=== PATIENT | female | born 2000 | race Two or more races ===

== ENCOUNTER 2024-06-14 21:42 | Emergency (ER) | payer MEDICAID, OTHER ==
[~2024-06-14] VITALS: Ht 162.6 cm; Wt 55.3 kg
[2024-06-14 21:49] VITALS: BP 126/77; PULSE 70; RESP 18; O2SAT 99
--- NOTE | 2024-06-14 22:05 | ED.PDOC ---
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 Patient went to the urgent care today, was prescribed Bactrim took her first dose today but states symptoms continue. Patient had an STD panel tested and is awaiting results. Patient complains of discharge that has increased but denies any bleeding, clotting, pain. Patient denies any medical history. Chief Complaint: Abrasion Time Seen by MD: 21:55 Reviewed Notes: Nurses Notes, Medications, Allergies Allergies: Coded Allergies: Penicillins (Verified Allergy, Unknown, 06/14/24) Home Meds Active Scripts Doxycycline Hyclate (DOXYCYCLINE HYCLATE) 100 Mg Tab, 1 TAB PO BID, #14 TAB Prov:NATHEN LOMELI MD 06/14/24 Information Source: Patient Mode of Arrival: Ambulatory Timing: Hours Severity: Moderate Vaginal Discharge: [place] Of Mass/Bleeding: Spontaneous Sexual Activity: Neither Last Consensual [place]: Unknown Control: None Associated Signs and Symptoms: Vaginal Discharge Past Medical History PAST MEDICAL HISTORY: Denies Surgical History: Denies all surgeries CHIEF HOSPITAL ADMINISTRATOR History: No Pertinent CHIEF HOSPITAL ADMINISTRATOR History Family History Family History: Reviewed,noncontributory to illness Social History Smoker: Non-Smoker Alcohol: Denies ETOH Use Drugs: Denies Drug Use Lives In: Home Constitutional: denies: chills, diaphoresis, fatigue, fever, malaise, sweats, weakness, others EENTM: denies: blurred vision, double vision, ear bleeding, ear discharge, ear drainage, ear pain, ear ringing, eye pain, eye redness, hearing loss, mouth pain, mouth swelling, nasal discharge, nose bleeding, nose congestion, nose pain, photophobia, tearing, throat pain, throat swelling, voice changes, others Respiratory: denies: cough, hemoptysis, orthopnea, SOB at rest, shortness of breath, SOB with excertion, stridor, wheezing, others Cardiovascular: denies: chest pain, dizzy spells, diaphoresis, Dyspnea on exertion, edema, irregular heart beat, left arm pain, lightheadedness, palpitations, PND, syncope, others Gastrointestinal: denies: abdomen distended, abdominal pain, blood streaked bowels, constipated, diarrhea, dysphagia, difficulty swallowing, hematemesis, melena, nausea, poor appetite, poor fluid intake, rectal bleeding, rectal pain, vomiting, others Genitourinary: reports: vagina discharge; denies: abnormal vagina bleeding, bur luisa, dyspareunia, dysuria, flank pain, frequency, hematuria, incontinence, pain, , urgency, others Neurological: denies: dizziness, fainting, headache, left sided numbness, left sided weakness, numbness, paresthesia, pre-existing deficit, right sided numbness, right sided weakness, seizure, speech problems, tingling, tremors, weakness, others Musculoskeletal: denies: back pain, gout, joint pain, joint swelling, muscle pain, muscle stiffness, neck pain, others Integumetry: reports: others (abrasion to the right inner labia ); denies: bruises, change in color, change in hair/nails, dryness, laceration, lesions, lumps, rash, wounds Allergic/Immunocompromised: denies: Difficulty Healing, Frequent Infections, Hives, Itching, others Hematologic/Lymphatic: denies: anemia, blood clots, easy bleeding, easy bruising, swollen glands, others Endocrine: denies: excessive hunger, excessive sweating, excessive thirst, excessive urination, flushing, intolerance to cold, intolerance to heat, unexplained weight gain, unexplained weight loss, others Psychiatric: denies: anxiety, bipolar disorder, depression, hopeless, panic disorder, schizophrenia, sleepless, suicidal, others All Other Systems: Reviewed and Negative Physical Exam General Appearance: No Apparent Distress, Normal HEENT: Normal ENT Inspection, Pharynx Normal, TMs Normal Neck: Full Range of Motion, Non-Tender, Normal, Normal Inspection Respiratory: Chest Non-Tender, Lungs Clear, No Accessory Muscle Use, No Respiratory Distress, Normal Breath Sounds Cardiovascular: No Edema, No JVD, No Murmur, No Gallop, Normal Peripheral Pulses, Regular Rate/Rhythm Breast Exam: Deferred Gastrointestinal: No Organomegaly, Non Tender, No Pulsatile Mass, Normal Bowel Sounds, Soft Genitalia: Deferred Pelvic: No cerv. Motion Tender, No Masses, Other (pubis recently shave, right introitus mildly inflammed. No cysts, nodules) Rectal: Deferred Extremities: No calf tenderness, Normal capillary refill, Normal inspection, Normal range of motion, Non-tender, No pedal edema Musculoskeletal : Apperance: Normal Neurologic: Alert, leaf binner II-XII nml as Tested, No Motor Deficits, Normal Affect, Normal Mood, No Sensory Deficits Cerebellar Function: Normal Reflexes: Normal Skin: Dry, Normal Color, Warm Lymphatic: No Adenopathy Was a procedure done? Was a procedure done?: No Differential Diagnosis (CHIEF HOSPITAL ADMINISTRATOR) Vaginal Discharge: Physiologic Discharge, PID, , UTI, Vaginitis - Atrophic, Vaginitis - Bacterial, Vaginitis - Candidal, Vaginitis - Contact, Vaginitis - Herpes, Vaginitis - Trichomonas X-Ray, Labs, Meds, VS Vital Signs Date Time Temp Pulse Resp B/P (MAP) Pulse Ox O2 Delivery O2 Flow Rate FiO2 06/14/24 21:49 98.1 70 18 126/77 (93) 99 Time of 1ST Reevaluation: 21:59 Reevaluation 1ST: Unchanged Patient Education/Counseling: Diagnosis, Treatment, Prognosis, Need For Follow Up Family Education/Counseling: No Family Present Additional Information - I reviewed the following notes from patient's past medical encounters: None - The following tests were ordered, and results were reviewed by me: None - Additional information was gathered from interviewing the following claudia dent Historian:None - I reviewed and agreed with the following test results read by other provider: None - I discussed treatments and results with medical personnel pt was started on bactrim and took one dose this evening. she has STI test panels with results pending. she reports more than the usual vaginal discharge, but on exam, i did not see any discharge or odor. her right introitus is mildly inflamed, but there are no swelling to indicate Bartholin's gland, abscss. however, based on the history, i will start her on doxy to cover for vaginitis. she will follow up with her doctor regarding the final STI results Departure 1 Departure Time of Disposition: 22:34 Impression: Primary Impression: Vaginitis Qualified Codes: N76.0 - Acute vaginitis Disposition: HOME / SELF CARE / HOMELESS Condition: Good e-Prescriptions Doxycycline Hyclate (DOXYCYCLINE HYCLATE) 100 Mg Tab 1 TAB PO BID, #14 TAB Prov: NATHEN LOMELI MD 06/14/24 Discharged With: Self Critical Care Note Critical Care Time?: No Stability Stability form required: No I personally scribed for LIZETTE NEFF MD ([facility] on 06/14/24 at 22:05. Electronically submitted by Lynne HernandezUN[facility]). I personally scribed for LIZETTE NEFF MD ([email or web address]) on 06/14/24 at 22:47. Electronically submitted by Corona Santo ([facility]). LIZETTE NEFF MD Jun 14, 2024 22:05 NATHEN LOMELI MD Jun 14, 2024 22:38
[2024-06-14] MEDS ORDERED: DOXY-286 PO (22:35)
--- NOTE | 2024-06-14 22:44 | ED.PDOC ---
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 Patient went to the urgent care today, was prescribed Bactrim took her first dose today but states symptoms continue. Patient had an STD panel tested and is awaiting results. Patient complains of discharge that has increased but denies any bleeding, clotting, pain. Patient denies any medical history. Chief Complaint: Abrasion Time Seen by MD: 22:42 Reviewed Notes: Nurses Notes Allergies: Coded Allergies: Penicillins (Verified Allergy, Unknown, 06/14/24) Home Meds Active Scripts Doxycycline Hyclate (DOXYCYCLINE HYCLATE) 100 Mg Tab, 1 TAB PO BID, #14 TAB Prov:NATHEN LOMELI MD 06/14/24 Information Source: Patient Mode of Arrival: Ambulatory Timing: Days Prehospital treatment: None Severity: Moderate Vaginal Discharge: None Vaginal Lesions: None Vaginal Mass: None Sexual Activity: Sexually Active Last Consensual [place]: Unknown Control: None Past Medical History PAST MEDICAL HISTORY: Denies Surgical History: Denies all surgeries LEASE OPERATOR History: No Pertinent LEASE OPERATOR History Family History Family History: Reviewed,noncontributory to illness Social History Smoker: Non-Smoker Alcohol: Denies ETOH Use Drugs: Denies Drug Use Lives In: Home Constitutional: denies: chills, diaphoresis, fatigue, fever, malaise, sweats, weakness, others EENTM: denies: blurred vision, double vision, ear bleeding, ear discharge, ear drainage, ear pain, ear ringing, eye pain, eye redness, hearing loss, mouth pain, mouth swelling, nasal discharge, nose bleeding, nose congestion, nose pain, photophobia, tearing, throat pain, throat swelling, voice changes, others Respiratory: denies: cough, hemoptysis, orthopnea, SOB at rest, shortness of breath, SOB with excertion, stridor, wheezing, others Cardiovascular: denies: chest pain, dizzy spells, diaphoresis, Dyspnea on e xertion, edema, irregular heart beat, left arm pain, lightheadedness, palpitations, PND, syncope, others Gastrointestinal: denies: abdomen distended, abdominal pain, blood streaked bowels, constipated, diarrhea, dysphagia, difficulty swallowing, hematemesis, melena, nausea, poor appetite, poor fluid intake, rectal bleeding, rectal pain, vomiting, others Genitourinary: reports: vagina discharge; denies: abnormal vagina bleeding, burning, dyspareunia, dysuria, flank pain, frequency, hematuria, incontinence, pain, , urgency, others Neurological: denies: dizziness, fainting, headache, left sided numbness, left sided weakness, numbness, paresthesia, pre-existing deficit, right sided numbness, right sided weakness, seizure, speech problems, tingling, tremors, weakness, others Musculoskeletal: denies: back pain, gout, joint pain, joint swelling, muscle pain, muscle stiffness, neck pain, others Integumetry: reports: others (abrasion right inner labia); denies: bruises, change in color, change in hair/nails, dryness, laceration, lesions, lumps, rash, wounds Allergic/Immunocompromised: denies: Difficulty Healing, Frequent Infections, Hives, Itching, others Hematologic/Lymphatic: denies: anemia, blood clots, easy bleeding, easy bruising, swollen glands, others Endocrine: denies: excessive hunger, excessive sweating, excessive thirst, excessive urination, flushing, intolerance to cold, intolerance to heat, unexplained weight gain, unexplained weight loss, others Psychiatric: denies: anxiety, bipolar disorder, depression, hopeless, panic disorder, schizophrenia, sleepless, suicidal, others Physical Exam General Appearance: No Apparent Distress, Normal HEENT: Normal ENT Inspection, Pharynx Normal, TMs Normal Neck: Full Range of Motion, Non-Tender, Normal, Normal Inspection Respiratory: Chest Non-Tender, Lungs Clear, No Accessory Muscle Use, No Respiratory Distress, Normal Breath Sounds Cardiovascular: No Edema, No JVD, No Murmur, No Gallop, Normal Peripheral Pulses, Regular Rate/Rhythm Breast Exam: Deferred Gastrointestinal: No Organomegaly, Non Tender, No Pulsatile Mass, Normal Bowel Sounds, Soft Genitalia: Deferred Pelvic: Deferred, Other (pubis recently shave, right introitus mildly inflammed. No cysts, nodules)) Rectal: Deferred Extremities: No calf tenderness, Normal capillary refill, Normal inspection, Normal range of motion, Non-tender, No pedal edema Musculoskeletal : Apperance: Normal Neurologic: Alert, tire fabric impregnating range tender II-XII nml as Tested, No Motor Deficits, Normal Affect, Normal Mood, No Sensory Deficits Cerebellar Function: Normal Reflexes: Normal Skin: Dry, Normal Color, Warm Lymphatic: No Adenopathy Was a procedure done? Was a procedure done?: No Differential Diagnosis (LEASE OPERATOR) Mass / Lesion: Perianal Abscess, Subcutaneous Abscess, Vaginitis - Bacterial, Vaginitis - Candidal, Vaginitis - Herpetic, Vaginitis - Trichomonas Vaginal Discharge: UTI, Vaginitis - Atrophic, Vaginitis - Bacterial X-Ray, Labs, Meds, VS Vital Signs Date Time Temp Pulse Resp B/P (MAP) Pulse Ox O2 Delivery O2 Flow Rate FiO2 06/14/24 21:49 98.1 70 18 126/77 (93) 99 Time of 1ST Reevaluation: 22:34 Reevaluation 1ST: Unchanged Patient Education/Counseling: Diagnosis, Treatment Family Education/Counseling: No Family Present Additional Information based on pt's history, she may ave vaginitis. i did not appreciate any discharge or odors. she did not have an abscess, cysts, or any area of pain or swelling. the right introitus has mild inflammation. i will cover her for vaginitis with doxy. her STI panel is pending result by , which she will follow up with Departure 1 Departure Time of Disposition: 22:34 Impression: Primary Impression: Vaginitis Qualified Codes: N76.0 - Acute vaginitis Disposition: HOME / SELF CARE / HOMELESS Condition: Good e-Prescriptions Doxycycline Hyclate (DOXYCYCLINE HYCLATE) 100 Mg Tab 1 TAB PO BID, #14 TAB Prov: NATHEN LOMELI MD 06/14/24 Discharged With: Self Critical Care Note Critical Care Time?: No Stability Stability form required: No Heart Score Heart Score: Heart Score Response (Comments) Value History N/A 0 EKG N/A 0 Age N/A 0 Risk Factors N/A 0 Troponin N/A 0 Total 0 I personally scribed for NATHEN LOMELI MD ([email or web address]) on 06/14/24 at 22:44. Electronically submitted by Corona Santo ([email or web address]). I personally scribed for NATHEN LOMELI MD ([email or web address]) on 06/14/24 at 22:46. Electronically submitted by Corona Santo ([email or web address]). NATHEN LOMELI MD Jun 14, 2024 22:44
== END 2024-06-15 03:52 | disposition home or self-care (01) ==
LOC: ER 21:42
DX: S30.814A Abrasion of vagina and vulva, initial encounter (principal); N76.0 Acute vaginitis; Z88.0 Allergy status to penicillin; X58.XXXA Exposure to other specified factors, initial encounter; Y93.89 Activity, other specified; Y92.89 Other specified places as the place of occurrence of the external cause; Y99.8 Other external cause status

== ENCOUNTER 2024-06-20 20:18 | Emergency (ER) | payer MEDICAID ==
[~2024-06-20] VITALS: Ht 162.6 cm; Wt 52.0 kg
[~2024-06-20 20:18] MED LIST: DOXY-286 PO
--- NOTE | 2024-06-20 22:13 | ED.PDOC ---
History of Present Illness HPI Comments 24 y/o F presents with cysts to her pubic area. She reports on returning to the ED after previous visit for it 1x week ago, due to still endorsing on cysts bringing her discomfort, after leaving the ED prior to receiving treatment then. Patient denies any discharge, swelling, bleeding, or other associated symptoms at this time. Chief Complaint: Wound Check Time Seen by MD: 22:00 Reviewed Notes: Nurses Notes, Medications, Allergies Allergies: Coded Allergies: Penicillins (Verified Allergy, Unknown, 06/14/24) Home Meds Active Scripts Doxycycline Hyclate (DOXYCYCLINE HYCLATE) 100 Mg Tab, 1 TAB PO BID, #14 TAB Prov:NATHEN LOMELI MD 06/14/24 Information Source: Patient Mode of Arrival: Ambulatory Past Medical History PAST MEDICAL HISTORY: Denies Surgical History: Denies all surgeries CALIBRATION CHECKER History: No Pertinent CALIBRATION CHECKER History Family History Family History: Reviewed,noncontributory to illness Social History Smoker: Non-Smoker Alcohol: Denies ETOH Use Drugs: Denies Drug Use Lives In: Home All Other Systems: Reviewed and Negative (comprehensive overview of systems negative unless otherwise stated in HPI) Physical Exam General Appearance: No Apparent Distress, Normal HEENT: Normal ENT Inspection, Pharynx Normal, TMs Normal Neck: Full Range of Motion, Non-Tender, Normal, Normal Inspection Respiratory: Chest Non-Tender, Lungs Clear, No Accessory Muscle Use, No Respiratory Distress, Normal Breath Sounds Cardiovascular: No Edema, No JVD, No Murmur, No Gallop, Normal Peripheral Pulses, Regular Rate/Rhythm Breast Exam: Deferred Gastrointestinal: No Organomegaly, Non Tender, No Pulsatile Mass, Normal Bowel Sounds, Soft Genitalia: Other (right labia majora, small area of abrasion with some mild redness; no discharge, lesions, swelling, no abscess, no cysts. pt is shaven) Pelvic: Deferred Rectal: Deferred Extremities: No calf tenderness, Normal capillary refill, Normal inspection, Normal range of motion, Non-tender, No pedal edema Musculoskeletal : Apperance: Normal Neurologic: Alert, photographer news II-XII nml as Tested, No Motor Deficits, Normal Affect, Normal Mood, No Sensory Deficits Cerebellar Function: Normal Reflexes: Normal Skin: Dry, Normal Color, Warm Lymphatic: No Adenopathy Was a procedure done? Was a procedure done?: No Differential Dx Considerations may include: vulvitis, dermatitis, cellulitis, viral X-Ray, Labs, Meds, VS Vital Signs Date Time Temp Pulse Resp B/P (MAP) Pulse Ox O2 Delivery O2 Flow Rate FiO2 06/20/24 21:57 97.9 69 16 104/67 (79) 96 Time of 1ST Reevaluation: 22:30 Reevaluation 1ST: Unchanged Patient Education/Counseling: Diagnosis, Treatment, Prognosis, Need For Follow Up Family Education/Counseling: No Family Present Additional Information pt has burning of the pubic area due to the exposed abrasion. there is mild redness. no blistering, no other lesions, no discharge. pt will be started on keflex and mupirocin. she is stable for discharge Departure 1 Departure Time of Disposition: 22:16 Impression: Primary Impression: Abrasion Additional Impression: Cellulitis Qualified Codes: L03.90 - Cellulitis, unspecified Disposition: HOME / SELF CARE / HOMELESS Condition: Good e-Prescriptions Mupirocin Calcium (Topical) (MUPIROCIN) 2 % Cre 2 % EX BID, #1 CRE Prov: NATHEN LOMELI MD 06/20/24 Cephalexin Monohydrate (Cephalexin) 500 Mg Cap 1 CAP PO QID, #40 CAP Prov: NATHEN LOMELI MD 06/20/24 Discharged With: Self Critical Care Note Critical Care Time?: No Stability Stability form required: No Heart Score Heart Score: Heart Score Response (Comments) Value History N/A 0 EKG N/A 0 Age N/A 0 Risk Factors N/A 0 Troponin N/A 0 Total 0 I personally scribed for NATHEN LOMELI MD ([email or web address]) on 06/20/24 at 22:12. Electronically submitted by Mario Shepherd ([email or web address]). NATHEN LOMELI MD Jun 20, 2024 22:12
[2024-06-20] MEDS ORDERED: CEPH500C PO (22:18)
[2024-06-20] MEDS ORDERED: MUPI2CRE17 EX (22:18)
[2024-06-20] MEDS: CEPHALEXIN 250 MG CAP PO ONE (23:47)
[2024-06-20 23:53] VITALS: BP 101/67; PULSE 86; RESP 12; TEMP 98.3; O2SAT 91
== END 2024-06-20 23:58 | disposition home or self-care (01) ==
LOC: ER 20:18
DX: S30.814A Abrasion of vagina and vulva, initial encounter (principal); L03.312 Cellulitis of back [any part except buttock and flank]; Z88.0 Allergy status to penicillin; X58.XXXA Exposure to other specified factors, initial encounter; Y93.89 Activity, other specified; Y92.89 Other specified places as the place of occurrence of the external cause; Y99.8 Other external cause status

== ENCOUNTER 2025-02-18 09:33 | Emergency (ER) | payer MEDICAID, OTHER ==
[~2025-02-18] VITALS: Ht 162.6 cm; Wt 54.9 kg
[~2025-02-18 09:33] MED LIST changes: +CEPH500C PO; +MUPI2CRE17 EX
--- NOTE | 2025-02-18 10:19 | ED.PDOC ---
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 Patient reports that she is currently 11 weeks 6 days with her first when she had started to experience heavy vaginal bleeding with associated suprapubic abdominal cramping since this morning. Patient relays that she follows up with an OBGYN in [place] where she lives. Patient denies any N/V/D, dysuria, hematuria, chest pain, SOB, or dizziness. Chief Complaint: Vaginal Bleed Time Seen by MD: 10:19 Reviewed Notes: Nurses Notes, Medications, Allergies Allergies: Coded Allergies: Penicillins (Verified Allergy, Unknown, 06/14/24) Home Meds Active Scripts Cephalexin (KEFLEX CAPSULE) 250 Mg Cp, 500 MG PO QID for 7 Days, #28 CAP Prov:DOMINGUEZ CHERRY MD 02/18/25 Mupirocin Calcium (Topical) (MUPIROCIN) 2 % Cre, 2 % EX BID, #1 CRE Prov:NATHEN LOMELI MD 06/20/24 Cephalexin Monohydrate (Cephalexin) 500 Mg Cap, 1 CAP PO QID, #40 CAP Prov:NATHEN LOMELI MD 06/20/24 Doxycycline Hyclate (DOXYCYCLINE HYCLATE) 100 Mg Tab, 1 TAB PO BID, #14 TAB Prov:NATHEN LOMELI MD 06/14/24 Information Source: Patient Mode of Arrival: Ambulatory Timing: Days Prehospital treatment: None Severity: Moderate Bleeding Quality: Bright Red Onset Of Mass/Bleeding: Spontaneous Sexual Activity: Last Consensual [place]: Unknown History of: Current Associated Signs and Symptoms: Vaginal Bleeding, Abdominal Pain Past Medical History PAST MEDICAL HISTORY: Denies Surgical History: Denies all surgeries CLINICAL SPECIALIST History: No Pertinent CLINICAL SPECIALIST History Family History Family History: Reviewed,noncontributory to illness Social History Smoker: Non-Smoker Alcohol: Denies ETOH Use Drugs: Denies Drug Use Lives In: Home Constitutional: denies: chills, diaphoresis, fatigue, fever, malaise, sweats, weakness, others EENTM: denies: blurred vision, double vision, ear bleeding, ear discharge, ear drainage, ear pain, ear ringing, eye pain, eye redness, hearing loss, mouth pain, mouth swelling, nasal discharge, nose bleeding, nose congestion, nose pain, photophobia, tearing, throat pain, throat swelling, voice changes, others Respiratory: denies: cough, hemoptysis, orthopnea, SOB at rest, shortness of breath, SOB with excertion, stridor, wheezing, others Cardiovascular: denies: chest pain, dizzy spells, diaphoresis, Dyspnea on exertion, edema, irregular heart beat, left arm pain, lightheadedness, palp itations, PND, syncope, others Gastrointestinal: reports: abdominal pain; denies: abdomen distended, blood streaked bowels, constipated, diarrhea, dysphagia, difficulty swallowing, hematemesis, melena, nausea, poor appetite, poor fluid intake, rectal bleeding, rectal pain, vomiting, others Genitourinary: reports: abnormal vagina bleeding; denies: burning, dyspareunia, dysuria, flank pain, frequency, hematuria, incontinence, pain, , vagina discharge, urgency, others Neurological: denies: dizziness, fainting, headache, left sided numbness, left sided weakness, numbness, paresthesia, pre-existing deficit, right sided numbness, right sided weakness, seizure, speech problems, tingling, tremors, weakness, others Musculoskeletal: denies: back pain, gout, joint pain, joint swelling, muscle pain, muscle stiffness, neck pain, others Integumetry: denies: bruises, change in color, change in hair/nails, dryness, laceration, lesions, lumps, rash, wounds, others Allergic/Immunocompromised: denies: Difficulty Healing, Frequent Infections, Hives, Itching, others Hematologic/Lymphatic: denies: anemia, blood clots, easy bleeding, easy bruising, swollen glands, others Endocrine: denies: excessive hunger, excessive sweating, excessive thirst, excessive urination, flushing, intolerance to cold, intolerance to heat, unexplained weight gain, unexplained weight loss, others Psychiatric: denies: anxiety, bipolar disorder, depression, hopeless, panic disorder, schizophrenia, sleepless, suicidal, others All Other Systems: Reviewed and Negative Physical Exam General Appearance: Moderate Distress, Normal HEENT: Normal ENT Inspection, Pharynx Normal, TMs Normal Neck: Full Range of Motion, Non-Tender, Normal, Normal Inspection Respiratory: Chest Non-Tender, Lungs Clear, No Accessory Muscle Use, No Respiratory Distress, Normal Breath Sounds Cardiovascular: No Edema, No JVD, No Murmur, No Gallop, Normal Peripheral Pulses, Regular Rate/Rhythm Breast Exam: Deferred Gastrointestinal: No Organomegaly, Non Tender, No Pulsatile Mass, Normal Bowel Sounds, Soft Genitalia: Deferred Pelvic: Deferred Rectal: Deferred Extremities: No calf tenderness, Normal capillary refill, Normal inspection, Normal range of motion, Non-tender, No pedal edema Musculoskeletal : Apperance: Normal 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 Was a procedure done?: No Differential Diagnosis (CLINICAL SPECIALIST) Vaginal Bleeding: - Complete, - Incomplete, - Inevitable, - Missed, - Threatened X-Ray, Labs, Meds, VS Vital Signs Date Time Temp Pulse Resp B/P (MAP) Pulse Ox O2 Delivery O2 Flow Rate FiO2 02/18/25 09:35 97.4 67 18 119/72 98 97.4 Lab Test 02/18/25 11:20 02/18/25 10:42 Range/Units Beta HCG, Quantitative 359340.6 H 1.5-4.2 mIU/mL Urine Color Colorless Yellow Urine Clarity Turbid H Clear Urine pH 7.0 5.0-9.0 Urine Specific [place] 1.003 1.001-1.035 Urine Protein Negative Negative Urine Ketones Negative Negative Urine Blood 2+ H Negative /uL Urine Nitrite Negative Negative Urine Bilirubin Negative Negative Urine Urobilinogen Normal Negative mg/dL Urine Leukocyte Esterase 2+ Negative /uL Urine RBC 1 0 - 4 /hpf Urine Microscopic WBC 6 H 0-5 /HPF Urine Squamous Epithelial Cells Few <5 /hpf Urine Bacteria Few H None Seen /hpf Urine Glucose Normal Normal mg/dL Patient alert. Complaining of vaginal spotting. Vitals stable. Comfortable. Ambulating without difficulty. Possible subchorionic hemorrhage. Ultrasound does reveal normal . Urinalysis shows UTI. Was given prescription of Keflex antibiotic. Explained to the patient. Was told to follow up with her OBGYN. Was told to follow up with her primary care physician. Was told to come back if there is any problem. [address] - [address] Ph: [phone] DIAGNOSTIC IMAGING Diagnostic Imaging Report : [id number] Signed PATIENT: OREN MANN ACCT: [id number] UNIT: [id number] : 2000 LOC: ER ROOM / BED: / AGE / SEX: 24 / F ADM STATUS: REG ER SERVICE 1015 ORDERING PHYSICIAN: DOMINGUEZ CHERRY MD PROCEDURE(s): OB4US - OB ULTRASOUND COMP LESS 14WKS REASON: bleeding ORDER NUMBER(s): [id number], ACCESSION NUMBER(s): [id number] INDICATION: bleeding TECHNIQUE: Multiple real-time grayscale transabdominal sonographic images along with color and duplex Doppler of the uterus and ovaries were obtained. COMPARISON: None FINDINGS: The uterus measures 12.4 by 5.2 x 8.5 cm. The endometrial stripe not measured. Gestational sac measures 5.3 cm consistent with 11 weeks 2 days. Yolk sac not visualized. Placenta seen. Estimated dated delivery 09/03/2024. Averaged gestational age 11 weeks 6 days. Possible small subchorionic hemorrhage measuring 1.1 x 0.7 x 0.9 cm The right ovary measures 2.9 x 2.3 x 2.7 cm. Volume of the right ovary is 9.7 ML The left ovary measures 3.2 x 1.3 x 2.6 cm. Left ovarian volume is 5.7 ML Subsequent color and duplex Doppler interrogation of the ovaries demonstrated symmetric vascular flow to both ovaries, though this does not exclude the possibility of torsion due to the dual blood supply. IMPRESSION: 1. 11 week 6 days single living intrauterine . 2. FHR: 167 bpm 3. Possible small subchorionic hemorrhage measuring 1.1 x 0.7 x 0.9 cm. ATED BY: QUINN ELIZONDO Jr., DO DICTATED DATE/TIME: 02/18/251150 SIGNED BY: QUINN ELIZONDO Jr., SIGNED DATE/TIME: 02/18/251150 CC: Images Reviewed?: Images reviewed and evaluated by me Time of 1ST Reevaluation: 11:17 Reevaluation 1ST: Unchanged Patient Education/Counseling: Diagnosis, Treatment Family Education/Counseling: No Family Present Departure 1 Departure Time of Disposition: 10:59 Impression: Primary Impression: Bleeding in early Additional Impression: UTI (urinary tract infection) Qualified Codes: N30.00 - Acute cystitis without hematuria Disposition: HOME / SELF CARE / HOMELESS Condition: Good e-Prescriptions Cephalexin (KEFLEX CAPSULE) 250 Mg Cp 500 MG PO QID for 7 Days, #28 CAP Prov: DOMINGUEZ CHERRY MD 02/18/25 Discharged With: Self Critical Care Note Critical Care Time?: No Stability Stability form required: No Heart Score Heart Score: Heart Score Response (Comments) Value History N/A 0 EKG N/A 0 Age N/A 0 Risk Factors N/A 0 Troponin N/A 0 Total 0 I personally scribed for DOMINGUEZ CHERRY MD ([email or web address]) on 02/18/25 at 10:19. Electronically submitted by Ismael Almeida ([email or web address]). I personally scribed for DOMINGUEZ CHERRY MD ([email or web address]) on 02/18/25 at 12:37. Electronically submitted by Ismael Almeida ([email or web address]). DOMINGUEZ CHERRY MD Feb 18, 2025 10:19
[2025-02-18 11:25] LABS: Urine Protein, UAD Negative (Negative)
--- NOTE | 2025-02-18 11:53 | DVH ---
INDICATION: bleeding TECHNIQUE: Multiple real-time grayscale transabdominal sonographic images along with color and duplex Doppler of the uterus and ovaries were obtained. COMPARISON: None FINDINGS: The uterus measures 12.4 by 5.2 x 8.5 cm. The endometrial stripe not measured. Gestational sac measures 5.3 cm consistent with 11 weeks 2 days. Yolk sac not visualized. Placenta s een. Estimated dated delivery 09/03/2024. Averaged gestational age 11 weeks 6 days. Possible small subchorionic hemorrhage measuring 1.1 x 0.7 x 0.9 cm The right ovary measures 2.9 x 2.3 x 2.7 cm. Volume of the right ovary is 9.7 ML The left ovary measures 3.2 x 1.3 x 2.6 cm. Left ovarian volume is 5.7 ML Subsequent color and duplex Doppler interrogation of the ovaries demonstrated symmetric vascular flow to both ovaries, though this does not exclude the possibility of torsion due to the dual blood suppl y. IMPRESSION: 1. 11 week 6 days single living intrauterine . 2. FHR: 167 bpm 3. Possible small subchorionic hemorrhage measuring 1.1 x 0.7 x 0.9 cm.
[2025-02-18] MEDS ORDERED: CEPH250C PO (12:38)
[2025-02-18 13:58] VITALS: BP 106/59; PULSE 71; RESP 18; TEMP 98.3; O2SAT 99
== END 2025-02-18 14:09 | disposition home or self-care (01) ==
LOC: ER 09:33
DX: O20.9 Hemorrhage in early pregnancy, unspecified (principal); O23.41 Unspecified infection of urinary tract in pregnancy, first trimester; N39.0 Urinary tract infection, site not specified; Z3A.11 11 weeks gestation of pregnancy; Z79.899 Other long term (current) drug therapy
CPT/HCPCS: 36415; 76801; 81001; 84702